=== PATIENT | female | born 1965 | race Caucasian/White ===

== ENCOUNTER → 2017-10-23 | Day surgery (SDC) | payer OTHER ==
[~2017-10-23] VITALS: Ht 172.7 cm; Wt 102.1 kg
[~2017-10-23] MED LIST: ATIVAN 2 MG. TAB2 MG PO; BENADRYL25 MG PO; CALCIUM 600 +1 EA10 PO; CELEBREX100 M1 PO; DOCUSATE SODIU100 MG PO; GARLIC300 MG PO; HYDROCHLOROTH12.5 M2 PO; HYDROMORPHONE HC2 M1 PO; MOTRIN 800MG T800 MG PO; MULTIPLE VITAM1 EAC2; MULTIVITAMINS1 EAC9 PO; MYLICON IN40 MG/0.6 PO; PAXIL40 M1 PO; PERCOCET 325 MG1 TA2 PO; PERCOCET 5-3251 EACH PO; PRINIVIL20 M1 PO; RITE AID MELATO10 MG PO; TRAMADOL HCL50 M1 PO; VITAMIN B-121000 MC3 PO; VITAMIN C500 M7 PO; ZOFRAN ODT4 M1 SL; ZOLOFT 100 MG100 MG PO; ZYRTEC ALLERGY10 MG PO
--- NOTE | 2017-10-23 12:15 | Operative Report ---
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 At first timeout was performed including patient's identification and the surgical procedure to be performed. Then general orotracheal anesthesia was induced. Table was rotated 90 to the patient's left away from anesthesia with left neck toward the surgeon. Head was rotated to the right, left neck exposed. NIMS monitor electrodes were inserted into the left trapezius and sternocleidomastoid muscles for monitoring especially on spinal accessory nerve. The electrodes were was secured in place with OpSite. They were then connected to the NIMS monitor which was then set neck dissection mode, 2 leads. Table was complained a little to the right to expose left neck. The lesion was quite lateral and downward. Under the anterior border of trapezius and posterior border of the SCM. Neck was prepped and draped in the routine manner and surgery was performed. A horizontal incision was placed in a skin crease manner overlying the malleus and measuring approximately 7 cm in length . The incision was crosshatched for the end of the surgery skin approximation. The incision was carried with a 15 blade through the skin and subcutaneous tissue. Further dissection was carried down through the fibrofatty tissue left level V. Dissection was done bluntly with Landis dissector to avoid injury to spinal accessory nerve. Approximate location of the spinal accessory nerve all was detected to apply using Nims monitor. The nerve was located inferior to the mass. Fibrofatty tissue was dissected away from the trapezius and anterior border of the trapezius was retracted and underneath the trapezius all mass was identified. It appeared to be vascular and venous. At places it was soft and collapsible and others it was soft and hard. The dissection was carried around the mass. There are 2 main feeding vessels. 1 located superiorly and the other inferiorly. Both vessels were carefully dissected and from surrounding tissue. The were clamped cut and tied with 2-0 silk. Additional feeding vessels and fibrofatty tissue was dissected and bipolared until the entire specimen was freed from the neck and removed. Nerve stimulator was used to allow all stimulated the spinal accessory nerve which again was not fully identified however it was in the inferior all surgical aspect facility. The nerve are stimulated and action potential was observed on the monitor. Once the lesion was removed. The wound was copiously irrigated and then Helotene powder was inserted for hemostasis. Suction drain was inserted. A #10 Sinhala suction drain was inserted into the wound for drainage exiting from the posterior edge of the incision. Drain was stitched in place with 2-0 silk. Closure was then carried at first with 4-0 Vicryl inverting sutures followed by skin closure with 5-0 Vicryl horizontal subcuticular running stitch. Dermabond was applied to the incision followed by Steri-Strips. Drain tubing was connected to the self suction carnisters. Pressure dressing was placed with fluffs and wraparound four-inch gauze. Patient was then reawakened, extubated and taken to the recovery room in good condition. There were no complications. Estimated blood loss was 10 mL. Findings: 3 x 5 cm all vascular appearing lesion, well-circumscribed Discharge Disposition: Same Day Admissions
== END ==
LOC: STS 01:47
DX: D21.0 Benign neoplasm of connective and other soft tissue of head, face and neck (principal); F17.200 Nicotine dependence, unspecified, uncomplicated; I10 Essential (primary) hypertension; E66.9 Obesity, unspecified; Z68.41 Body mass index [BMI] 40.0-44.9, adult
CPT/HCPCS: J0131; J0690; J2250